=== PATIENT | male | born 1980 | race Caucasian/White ===

== ENCOUNTER 2019-09-19 10:29 | Emergency (ER) | payer OTHER ==
[2019-09-19 10:50] VITALS: TEMP 96.5
[2019-09-19] MEDS ORDERED: TETANUS,DIPHTHERIA,PERTUSSIS 1 EA SYG IM ONE (11:24)
[2019-09-19] MEDS ORDERED: ACETAMINOPHEN 500 MG TAB PO ONE (11:25)
[2019-09-19] MEDS ORDERED: CHLORHEXIDINE GLUCONATE 4 % 15 ML UD TOP ONE (11:27)
--- NOTE | 2019-09-19 11:31 | ED.PDOC ---
History of Present Illness - General Chief Complaint: Laceration Stated Complaint: CUTLEFT HAND Time Seen by Provider: 09/19/19 11:23 - History of Present Illness Initial Comments: 39 yo M no significant PMH presents to ED c/o accidental cut to left palm while opening a package 1 hour rpior to arrival. No head injury LOC right handed no PMD for follow up denies fever chills nausea vomiting diarrhea chest pain sob diaphoresis. No change in diet rest bowel or bladder. Admits smoking and drinking admits FH HTN denies FH DM no other c/o today. Allergies/Adverse Reactions: Allergies Penicillins Allergy (Verified 09/19/19 10:48) Home Medications: Ambulatory Orders Acetaminophen [Tylenol] 650 mg PO Q6H PRN #30 tab 09/19/19 Clindamycin HCl 300 mg PO Q6H 10 Days #80 cap 09/19/19 Ibuprofen 600 mg PO Q6H PRN #20 tab 09/19/19 Review of Systems - Review of Systems Constitutional: States: see HPI EENTM: States: see HPI Respiratory: States: see HPI Cardiology: States: see HPI Gastrointestinal/Abdominal: States: see HPI Genitourinary: States: see HPI Musculoskeletal: States: see HPI Skin: States: see HPI Neurological: States: see HPI Endocrine: States: see HPI Hematologic/Lymphatic: States: see HPI All other Systems: Reviewed and Negative Past Medical History (General) - Patient Medical History Hx Asthma: No Surgical History: no surgical history - Vaccination History Hx Tetanus, Diphtheria Vaccination: No Hx Influenza Vaccination: No Hx Pneumococcal Vaccination: No Immunizations Up to Date: No - Social History Hx Tobacco Use: No Hx Alcohol Use: Yes - RARELY Hx Substance Use: No Hx Substance Use Treatment: No Hx Depression: No Family Medical History - Family History Mother Family History: Unknown Physical Exam - Physical Exam General Appearance: No apparent distress Eye Exam: bilateral normal Ears, Nose, Throat: normal ENT inspection Neck: non-tender, full range of motion Respiratory: lungs clear Cardiovascular/Chest: regular rate, rhythm Gastrointestinal/Abdominal: non tender, soft Rectal Exam: deferred Back Exam: normal inspection Extremity: other - Approx 1cm linear laceration to palm under digit #2 median radian ulnar nn intact no obvious neurovascular or sensorimotor compromise Neurologic: no motor/sensory deficits Skin Exam: normal color, other - laceration as described Lymphatic: no adenopathy Progress - Progress Progress: 09/19/19 11:34 A/P-Left Palm Laceration-tylenol tetanus laceration repair xr left hand reassess if unremarkable d/c follow up pcp referral wound check 2 days suture removal 7- 10 days tylenol ibuprofen clindamycin 09/19/19 13:08 Reporting MD: Salazar Johnson Otr Driver date: Dictation date: Frontal, lateral, and oblique views of the left hand. Indication:laceration palm Comparison: None. Impression: Bandaging present about the palm with suspected subtle subcutaneous emphysema. No radiopaque foreign body or fracture identified. Electronically signed by: Salazar Johnson MD 09/19/2019 12:22 PM [employer] Procedures - Laceration/Wound Repair Left Hand Wound's Depth, Shape: superficial, linear Wound Explored: no foreign body removed Betadine Prep?: No Anesthesia: 1% Lidocaine Volume Anesthetic (cc's): 10 Wound Debrided: minimal Wound Repaired With: sutures Suture Size/Type: 3:0, prolene Number of Sutures: 6 Layer Closure?: Yes Sterile Dressing Applied?: No Splint Applied?: No Sling Applied?: No Departure - Departure Clinical Impression: Laceration Disposition: Discharge to Home or Self Care Condition: Good Departure Forms: ED Discharge - Pt. Copy, Patient Portal Self Enrollment Instructions: DI for Laceration Repair, How to Care for a Laceration After Repair Diet: resume usual diet Activity: increase activity as tolerated Prescriptions: Acetaminophen [Tylenol] 650 mg PO Q6H PRN #30 tab PRN Reason: Pain Clindamycin HCl 300 mg PO Q6H 10 Days #80 cap Ibuprofen 600 mg PO Q6H PRN #20 tab PRN Reason: Pain Home Medications: Ambulatory Orders Acetaminophen [Tylenol] 650 mg PO Q6H PRN #30 tab 09/19/19 Clindamycin HCl 300 mg PO Q6H 10 Days #80 cap 09/19/19 Ibuprofen 600 mg PO Q6H PRN #20 tab 09/19/19 Additional Instructions: Follow up with primary care doctor in 2 days for wound check and present to primary care doctor in 7-10 days for suture removal. Please take all antibiotics until empty with food no alcohol.
[2019-09-19] MEDS ORDERED: LIDOCAINE 1% 10 ML VIAL INJ ONE (11:38)
--- NOTE | 2019-09-19 12:23 | RAD ---
Frontal, lateral, and oblique views of the left hand. Indication:laceration palm Comparison: None. Impression: Bandaging present about the palm with suspected subtle subcutaneous emphysema. No radiopaque foreign body or fracture identified. Electronically signed by: Salazar Johnson MD 09/19/2019 12:22 PM [facility]
[2019-09-19 14:15] VITALS: BP 136/82; O2SAT 99
== END 2019-09-20 01:00 | disposition home or self-care (01) ==
LOC: ER 10:29
DX: S61.412A Laceration without foreign body of left hand, initial encounter (principal); F17.200 Nicotine dependence, unspecified, uncomplicated; Z88.0 Allergy status to penicillin; W26.0XXA Contact with knife, initial encounter; Y92.9 Unspecified place or not applicable